=== PATIENT | male | born 1985 | race Caucasian/White ===

== ENCOUNTER 2017-05-23 17:30 | Emergency (ER) | payer MEDICAID ==
[~2017-05-23] VITALS: Ht 193 cm; Wt 77.1 kg
[~2017-05-23 17:30] MED LIST: ATARAX,VISTARIL50 MG PO; CARBIDOPA/LEVOD1 TA1 PO; DELTASONE20 MG PO; PREDNISONE20 M1 PO; PROAIR HFA0.09 MG/AC INH; PROVENTIL0.09 MG/A1 INH; QUETIAPINE FUMA25 MG PO; VIBRAMYCIN100 MG PO; ZITHROMAX250 MG PO
== END 2017-05-23 18:38 | disposition home or self-care (01) ==
LOC: ED 17:30
DX: T40.1X1A Poisoning by heroin, accidental (unintentional), initial encounter (principal); F17.200 Nicotine dependence, unspecified, uncomplicated; F14.10 Cocaine abuse, uncomplicated; F11.10 Opioid abuse, uncomplicated; Y92.9 Unspecified place or not applicable

== ENCOUNTER 2019-01-16 19:40 | Emergency (ER) | payer SELFPAY ==
[~2019-01-16] VITALS: Ht 193 cm; Wt 72.6 kg
[~2019-01-16 19:40] MED LIST changes: +ANTIBIOTIC28.4 GM T; +AUGMENTIN 875-875 MG PO; +BACITRACIN28.4 GM T; +CEPHALEXIN500 M1 PO; +SEPTDS PO
[2019-01-16] MEDS ORDERED: SEPTDS PO (20:26)
[2019-01-16] MEDS ORDERED: CEPHALEXIN500 M1 PO (20:26)
[2019-01-16] MEDS ORDERED: HYDROXYZINE HCL25 MG PO (20:26)
[2019-01-16] MEDS ORDERED: LOTRIMIN AF12 GM T (20:26)
== END 2019-01-16 20:36 | disposition home or self-care (01) ==
LOC: ED 19:40
DX: B35.3 Tinea pedis (principal); L30.9 Dermatitis, unspecified; F17.200 Nicotine dependence, unspecified, uncomplicated

== ENCOUNTER 2019-02-12 18:39 | Emergency (ER) | payer OTHER ==
[~2019-02-12] VITALS: Ht 193 cm; Wt 72.6 kg
[~2019-02-12 18:39] MED LIST changes: +HYDROXYZINE HCL25 MG PO; +LOTRIMIN AF12 GM T
[2019-02-12] MEDS ORDERED: ANTIBIOTIC28.4 GM T (19:18)
[2019-02-12] MEDS ORDERED: SEPTDS PO (19:18)
== END 2019-02-12 19:40 | disposition home or self-care (01) ==
LOC: ED 18:39
DX: L02.02 Furuncle of face (principal); F17.200 Nicotine dependence, unspecified, uncomplicated; F14.10 Cocaine abuse, uncomplicated; F11.10 Opioid abuse, uncomplicated; Z79.899 Other long term (current) drug therapy

== ENCOUNTER 2019-02-19 14:49 | Inpatient (IN) | payer OTHER ==
[~2019-02-19] VITALS: Ht 193 cm; Wt 71.5 kg
--- NOTE | ~2019-02-19 | EKG ---
[place], [place] ELECTROCARDIOGRAM REPORT NAME: SASHA GARDNER UNIT #: [id number] ROOM: 421 DOCTOR: STEFANY DRAFT REPORT BIRTHDATE: [birth year] [facility] Test Date: 2019-02-19 Test Time: 19:32:33 Pat Name: SASHA GARDNER Department: Room: 421 1 Gender: M Risk Tech: TORIN : 1985 Requested By: JEANNETTE ESCOTO Order Number: [id number] Reading MD: Percy Peoples MD Measurements Intervals Dailey Rate: 52 P: 69 AL: 168 QRS: 85 QRSD: 89 T: 57 QT: 474 QTc: 441 Interpretive Statements Sinus rhythm Probable left ventricular hypertrophy Electronically Signed On 02-26-2019 4:01:52 PDT by Percy Peoples MD CM:EKGRPT:ELECTROCARDIOGRAM REPORT 0401 JEANNETTE ESCOTO EPIPHANY DRAFT REPORT JEANNETTE ESCOTO
--- NOTE | 2019-02-19 15:49 | NUR ---
PATIENT MEETS [facility]. CINA=16. PATIENT WANTS TO FOLLOW UP WITH AA/NA MEETINGS AND OTHER SELF-HELP GROUPS FOR HIS AFTERCARE PLAN. ALEXANDER CHOE BA, ALLERGY NURSE
[2019-02-19 16:00] VITALS: BP 120/80
--- NOTE | 2019-02-19 16:00 | NUR ---
33 year old male admitted to room # opiate for stabilization. 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 Compliant with admission procedure. Patient denies any anxiety, but is unable to sit still looks about room, unable to focus eyes on nurse during interview. See assessment forms for additional information about patient status.
--- NOTE | 2019-02-19 16:43 | NUR ---
NOTIFIED DR. YOUNG PATIENT IS HERE.
[2019-02-19 17:29] LABS: BASO % 0.5 % (0.0-1.0); EOS # 0.1 10*3/uL (0.0-0.4); EOS % 1.5 % (1.0-4.0); HEMATOCRIT 36.4 % (42.0-52.0); HEMOGLOBIN 12.2 g/dl (14.0-18.0); LYMPH # 2.5 10*3/uL (1.3-4.4); LYMPH % 33.9 % (27.0-41.0); MEAN CELL VOLUME 96.3 fl (80.0-94.0); MEAN CORPUSCULAR HGB 32.3 pg (27.0-31.0); MEAN CORPUSCULAR HGB CONC 33.5 g/dl (33.0-37.0); MEAN PLATELET VOLUME 8.8 fl (9.6-12.3); MONO # 0.7 10*3/uL (0.1-1.0); NEUT # 4.1 10*3/uL (2.3-7.9); NEUT % 54.8 % (47.0-73.0); PLATELET COUNT AUTOMATED 290 10*3/uL (130-400); RED BLOOD COUNT 3.78 10*6/uL (4.50-5.90); RED CELL DISTRI WIDTH 12.3 % (0-14.5); WHITE BLOOD COUNT 7.4 10*3/uL (4.8-10.8)
[2019-02-19 17:40] LABS: INTERNATIONAL NORM RATIO 0.9 (2.0-3.5)
[2019-02-19 17:47] LABS: URINE AMPHETAMINES > 1000 (1000ng/ml); URINE BARBITURATES < 200 (200ng/ml); URINE BENZODIAZEPINES < 200 (200ng/ml); URINE CANNABINOIDS (THC) < 50 (50ng/ml); URINE COCAINE > 300 (300ng/ml); URINE METHADONE < 300 (300ng/ml); URINE OPIATES > 300 (300ng/ml)
[2019-02-19 17:50] LABS: ALBUMIN 3.3 gm/dl (3.1-4.5); ALKALINE PHOSPHATASE 81 U/L (45-117); BUN 19 mg/dl (7-24); CHLORIDE 101 mmol/L (98-107); POTASSIUM 4.3 mmol/L (3.5-5.1); SGOT/AST 47 IU/L (3-35); SGPT/ALT 77 U/L (12-78); SODIUM 137 mmol/L (136-145); TOTAL PROTEIN 7.5 gm/dL (6.4-8.2)
[2019-02-19 17:51] LABS: URINE PHENCYCLIDINE < 25 (25ng/ml)
[2019-02-19 17:55] LABS: ETHYL ALCOHOL < 3.0 mg/dl (<3)
--- NOTE | 2019-02-19 18:36 | NUR ---
MEDICATED WITH MOTRIN BENTYL ROBAXIN AND VISTARIL PER ORDERS AND REQUEST.
--- NOTE | 2019-02-19 19:44 | NUR ---
PATIENT RESTING IN BED WITH NO NEEDS MADE. REMINDED TO NOT LEAVE THE FLOOR. VERBALIZED UNDERSTANDING. BED IN LOWEST POSITION, CALL LIGHT IN REACH
[2019-02-19 20:00] VITALS: BP 114/63
[2019-02-19 20:40] LABS: BILIRUBIN NEGATIVE (NEGATIVE); BLOOD NEGATIVE (NEGATIVE); CLARITY CLEAR (CLEAR); COLOR YELLOW (YELLOW); GLUCOSE NEGATIVE (NEGATIVE); KETONE NEGATIVE (NEGATIVE); LEUKO ESTERASE NEGATIVE (NEGATIVE); NITRITE NEGATIVE (NEGATIVE); SPECIFIC GRAVITY 1.025 (1.005-1.030); UROBILINOGEN 0.2 E.U./dl (0.2-1.0)
[2019-02-19 20:46] LABS: BACTERIA 1+; CALCIUM OXALATE CRYSTALS 1+; EPITHELIAL CELLS 0-2; WBC 0-2 wbc/hpf (0-5)
[2019-02-20] VITALS: BP 107/62
--- NOTE | 2019-02-20 03:09 | NUR ---
24 HR chart check completed.
[2019-02-20 08:00] VITALS: BP 110/67
[2019-02-20 16:00] VITALS: BP 106/86
--- NOTE | 2019-02-20 17:33 | NUR ---
[facility] STAFF FOLLOWED UP WITH PATIENT. PATIENT IS STIILL WANTING TO FOLLOW UP WITH AA/NA MEETINGS AND SELF-HELP GROUPS. [facility] STAFF WILL PROVIDE A LIST IN HIS LOCAL AREA. ALEXANDER CHOE B.A. ASSISTANT COMMUNITY DIRECTOR
--- NOTE | 2019-02-20 20:00 | NUR ---
Patient resting quietly with no c/o discomfort. Respirations easy and regular. Vital signs stable. No overt distress. ERIKA JONES
[2019-02-21] VITALS: BP 129/72
--- NOTE | 2019-02-21 00:48 | NUR ---
RESTING IN BED WITH EYES CLOSED. APPEARS TO BE SLEEPING. NO DISTRESS NOTED.
--- NOTE | 2019-02-21 02:08 | NUR ---
0200 ROUTINE SUBUTEX GIVEN ORDERED. PT REMAINS WITHOUT C/O'S.
--- NOTE | 2019-02-21 06:23 | NUR ---
APPEARS TO HAVE SLEPT WELL THIS SHIFT. NO DISTRESS NOTED.
[2019-02-21 08:00] VITALS: BP 114/76
--- NOTE | 2019-02-21 08:42 | NUR ---
PT COMPLAIN OF HEADACHE, MOTRIN GIVEN. WILL MONITOR FOR EFFECTIVENESS
--- NOTE | 2019-02-21 15:26 | NUR ---
[place] STAFF WILL PROVIDE WITH AA/NA AND SELF-HELP MEETINGS IN HIS LOCAL AREA. PATIENT AGREES AND UNDERSTANDS HIS AFTERCARE PLAN. ALEXANDER CHOE BA PRINTED CIRCUIT LAYOUT TAPER
[2019-02-21 16:00] VITALS: BP 134/66
--- NOTE | 2019-02-21 20:05 | NUR ---
PT. STATES THAT HE WANTS TO LEAVE. HE STATES THAT HE WANTS TO LEAVE SO THAT HE CAN GO TO WORK IN THE MORNING. EXPLAINED TO PATIENT ABOUT REMAINING OVERNIGHT AND THAT HE WOULD BE DISCHARGED IN THE MORNING AND THAT HE WOULD BE LEAVING AGAINST MEDICAL ADVICE. PT. INSISTS ON LEAVING. AMA PAPERS SIGNED BY PATIENT & SIGNED & WITNESSED BY ANOTHER R.N.
--- NOTE | 2019-02-21 20:05 | NUR ---
DR. GERMAIN NOTIFIED OF PT. WANTING TO LEAVE AMA.
--- NOTE | 2019-02-21 20:15 | NUR ---
PT. LEFT AMA. STABLE; ALL BELONGINGS TAKEN WITH HIM.
== END 2019-02-21 20:15 | disposition left against medical advice (07) | DRG 894 ==
LOC: 4E 14:49
PROVIDERS: Internal Medicine; ADMIT Emergency Medicine
DX: F11.23 Opioid dependence with withdrawal (principal); L02.92 Furuncle, unspecified; F14.10 Cocaine abuse, uncomplicated; F17.210 Nicotine dependence, cigarettes, uncomplicated; R74.0 Nonspecific elevation of levels of transaminase and lactic acid dehydrogenase [LDH]; D53.1 Other megaloblastic anemias, not elsewhere classified; J45.909 Unspecified asthma, uncomplicated; R00.1 Bradycardia, unspecified; Z79.899 Other long term (current) drug therapy; Z81.8 Family history of other mental and behavioral disorders

== ENCOUNTER 2019-05-20 16:12 | Emergency (ER) | payer OTHER ==
[~2019-05-20] VITALS: Ht 193 cm; Wt 68.0 kg
== END 2019-05-20 16:50 | disposition left against medical advice (07) ==
LOC: ED 16:12
DX: T50.901A Poisoning by unspecified drugs, medicaments and biological substances, accidental (unintentional), initial encounter (principal); R40.20 Unspecified coma; R45.1 Restlessness and agitation; F17.200 Nicotine dependence, unspecified, uncomplicated; Y92.481 Parking lot as the place of occurrence of the external cause

== ENCOUNTER 2019-06-09 14:22 | Inpatient (IN) | payer OTHER ==
[~2019-06-09] VITALS: Ht 193 cm; Wt 74.4 kg
[2019-06-09 14:24] VITALS: BP 113/68
[2019-06-09 14:44] LABS: BILIRUBIN 1+ (NEGATIVE); BLOOD NEGATIVE (NEGATIVE); CLARITY CLEAR (CLEAR); COLOR YELLOW (YELLOW); GLUCOSE NEGATIVE (NEGATIVE); KETONE NEGATIVE (NEGATIVE); LEUKO ESTERASE NEGATIVE (NEGATIVE); NITRITE NEGATIVE (NEGATIVE); SPECIFIC GRAVITY <= 1.005 (1.005-1.030); UROBILINOGEN 0.2 E.U./dl (0.2-1.0)
[2019-06-09 14:54] LABS: EPITHELIAL CELLS 0-2
[2019-06-09 15:27] VITALS: BP 105/56
[2019-06-09 16:00] VITALS: BP 110/67
[2019-06-09 16:23] LABS: HEMATOCRIT 37.8 % (42.0-52.0); HEMOGLOBIN 12.9 g/dl (14.0-18.0); MEAN CORPUSCULAR HGB 30.7 pg (27.0-31.0); MEAN CORPUSCULAR HGB CONC 34.1 g/dl (33.0-37.0); PLATELET COUNT AUTOMATED 113 10*3/uL (130-400); RED CELL DISTRI WIDTH 11.9 % (0-14.5); WHITE BLOOD COUNT 3.9 10*3/uL (4.8-10.8)
[2019-06-09 16:39] LABS: BUN 15 mg/dl (7-24); CHLORIDE 102 mmol/L (98-107); CREATININE 0.81 mg/dL (0.70-1.30); POTASSIUM 3.8 mmol/L (3.5-5.1); SODIUM 135 mmol/L (136-145)
[2019-06-09 16:47] LABS: ATYPICAL LYMPHS 3 % (0-0); BASOPHILS 1 % (0-1); PLATELET SUFFICIENCY LOW (NORMAL); TOTAL CELLS COUNTED 100 #CELLS
[2019-06-09 16:54] LABS: ALKALINE PHOSPHATASE 249 U/L (45-117); TOTAL PROTEIN 6.7 gm/dL (6.4-8.2)
[2019-06-09 16:56] LABS: SGOT/AST 3197 IU/L (3-35); SGPT/ALT 3281 U/L (12-78)
[2019-06-09 18:00] VITALS: BP 110/67
[2019-06-09 18:03] VITALS: BP 114/71
[2019-06-09 20:00] VITALS: BP 104/60
[2019-06-10] VITALS: BP 107/59
[2019-06-10 04:00] VITALS: BP 102/56
[2019-06-10 06:27] LABS: HEMATOCRIT 37.9 % (42.0-52.0); HEMOGLOBIN 12.9 g/dl (14.0-18.0); MEAN CELL VOLUME 89.4 fl (80.0-94.0); MEAN CORPUSCULAR HGB 30.4 pg (27.0-31.0); PLATELET COUNT AUTOMATED 102 10*3/uL (130-400); RED BLOOD COUNT 4.24 10*6/uL (4.50-5.90); RED CELL DISTRI WIDTH 12.1 % (0-14.5); WHITE BLOOD COUNT 3.5 10*3/uL (4.8-10.8)
[2019-06-10 06:34] LABS: ALBUMIN 2.9 gm/dl (3.1-4.5); BUN 11 mg/dl (7-24); CHLORIDE 108 mmol/L (98-107); CREATININE 0.77 mg/dL (0.70-1.30); PHOSPHOROUS 3.1 mg/dL (2.5-4.9); POTASSIUM 4.1 mmol/L (3.5-5.1); SODIUM 140 mmol/L (136-145); TOTAL PROTEIN 6.4 gm/dL (6.4-8.2)
[2019-06-10 06:49] LABS: ALKALINE PHOSPHATASE 240 U/L (45-117); FREE T4 0.96 ng/dl (0.76-1.46)
[2019-06-10 06:52] LABS: SGOT/AST 2482 IU/L (3-35); SGPT/ALT 3302 U/L (12-78)
[2019-06-10 07:06] LABS: ACT PARTIAL THROMBO TIME 29.9 SECONDS (20.0-32.1); INTERNATIONAL NORM RATIO 1.2 (2.0-3.5)
[2019-06-10 07:22] LABS: ATYPICAL LYMPHS 22 % (0-0); TOTAL CELLS COUNTED 100 #CELLS
[2019-06-10 07:23] LABS: PLATELET SUFFICIENCY LOW (NORMAL)
[2019-06-10 08:00] VITALS: BP 100/58
[2019-06-10 12:00] VITALS: BP 119/65
[2019-06-10 16:00] VITALS: BP 121/65
[2019-06-11 07:08] LABS: HEPATITIS B SURFACE AG Negative (Negative)
[2019-06-11 09:05] LABS: HEPATITIS B SURFACE AG Negative (Negative)
[2019-06-11 11:03] LABS: HEPATITIS C VIRUS ANTIBODY >11.0 s/co (0.0-0.9)
[2019-06-11 11:07] LABS: HEPATITIS C VIRUS ANTIBODY >11.0 s/co (0.0-0.9)
== END 2019-06-10 18:22 | disposition left against medical advice (07) | DRG 660 ==
LOC: ED 14:22 → 5E 17:24 → EDHOLD 17:24 → 5E 17:57
PROVIDERS: Family Medicine; Internal Medicine Gastroenterology; Physician Assistant; ADMIT Internal Medicine
DX: D61.818 Other pancytopenia (principal); E87.8 Other disorders of electrolyte and fluid balance, not elsewhere classified; E44.0 Moderate protein-calorie malnutrition; R82.2 Biliuria; E87.1 Hypo-osmolality and hyponatremia; K76.0 Fatty (change of) liver, not elsewhere classified; B18.2 Chronic viral hepatitis C; R10.9 Unspecified abdominal pain; R74.0 Nonspecific elevation of levels of transaminase and lactic acid dehydrogenase [LDH]; F11.10 Opioid abuse, uncomplicated; Z53.29 Procedure and treatment not carried out because of patient's decision for other reasons; J45.909 Unspecified asthma, uncomplicated; E80.6 Other disorders of bilirubin metabolism; F17.210 Nicotine dependence, cigarettes, uncomplicated; Z81.8 Family history of other mental and behavioral disorders; Z68.1 Body mass index [BMI] 19.9 or less, adult

== ENCOUNTER 2020-01-17 22:43 | Emergency (ER) | payer OTHER ==
[~2020-01-17] VITALS: Ht 193 cm; Wt 72.6 kg
[2020-01-17] MEDS ORDERED: CEPHALEXIN500 M1 PO (22:54)
[2020-01-17] MEDS ORDERED: SEPTDS PO (22:54)
== END 2020-01-17 23:14 | disposition home or self-care (01) ==
LOC: ED 22:43
DX: L02.412 Cutaneous abscess of left axilla (principal); J45.909 Unspecified asthma, uncomplicated; F17.200 Nicotine dependence, unspecified, uncomplicated

== ENCOUNTER 2020-06-16 13:56 | Emergency (ER) | payer OTHER ==
[~2020-06-16] VITALS: Wt 77.1 kg
== END 2020-06-16 14:37 | disposition left against medical advice (07) ==
LOC: ED 13:56
DX: T40.1X1A Poisoning by heroin, accidental (unintentional), initial encounter (principal); J45.909 Unspecified asthma, uncomplicated; F17.200 Nicotine dependence, unspecified, uncomplicated; Z79.2 Long term (current) use of antibiotics; Z53.29 Procedure and treatment not carried out because of patient's decision for other reasons; Y92.89 Other specified places as the place of occurrence of the external cause

== ENCOUNTER 2020-06-16 23:57 | Emergency (ER) | payer OTHER ==
[~2020-06-16] VITALS: Ht 193 cm; Wt 77.1 kg
== END 2020-06-17 01:24 | disposition home or self-care (01) ==
LOC: ED 23:57
DX: S81.812A Laceration without foreign body, left lower leg, initial encounter (principal); Z79.899 Other long term (current) drug therapy; X58.XXXA Exposure to other specified factors, initial encounter; Y93.89 Activity, other specified; Y92.89 Other specified places as the place of occurrence of the external cause; Y99.8 Other external cause status

== ENCOUNTER 2020-07-03 18:50 | Emergency (ER) | payer OTHER ==
[~2020-07-03] VITALS: Wt 74.8 kg
[2020-07-03] MEDS ORDERED: CEFADROXIL500 M1 PO (20:09)
[2020-07-03] MEDS ORDERED: Motrin,Rufen800 MG PO (20:09)
[2020-07-03] MEDS ORDERED: SEPTDS PO (20:09)
== END 2020-07-03 20:10 | disposition left against medical advice (07) ==
LOC: ED 18:50
DX: T14.8XXA Other injury of unspecified body region, initial encounter (principal); X58.XXXA Exposure to other specified factors, initial encounter; Y93.89 Activity, other specified; Y92.89 Other specified places as the place of occurrence of the external cause; Y99.8 Other external cause status

== ENCOUNTER 2020-08-15 07:53 | Emergency (ER) | payer OTHER ==
[~2020-08-15] VITALS: Ht 180.3 cm; Wt 81.6 kg
[~2020-08-15 07:53] MED LIST changes: +CEFADROXIL500 M1 PO; +Motrin,Rufen800 MG PO
[2020-08-15 08:12] LABS: BASO % 0.3 % (0.0-1.0); EOS # 0.2 10*3/uL (0.0-0.4); EOS % 2.7 % (1.0-4.0); HEMATOCRIT 37.2 % (42.0-52.0); LYMPH # 2.2 10*3/uL (1.3-4.4); MEAN CELL VOLUME 90.7 fl (80.0-94.0); MEAN CORPUSCULAR HGB 30.2 pg (27.0-31.0); MEAN CORPUSCULAR HGB CONC 33.3 g/dl (33.0-37.0); MEAN PLATELET VOLUME 8.8 fl (9.6-12.3); MONO # 0.7 10*3/uL (0.1-1.0); NEUT # 2.8 10*3/uL (2.3-7.9); NEUT % 47.8 % (47.0-73.0); PLATELET COUNT AUTOMATED 181 10*3/uL (130-400); RED CELL DISTRI WIDTH 12.3 % (0-14.5); WHITE BLOOD COUNT 5.9 10*3/uL (4.8-10.8)
[2020-08-15 08:29] LABS: ALBUMIN 3.5 gm/dl (3.1-4.5); ALKALINE PHOSPHATASE 78 U/L (45-117); BUN 20 mg/dl (7-24); CHLORIDE 102 mmol/L (98-107); CREATININE 0.82 mg/dL (0.70-1.30); POTASSIUM 3.9 mmol/L (3.5-5.1); SGOT/AST 52 IU/L (3-35); SGPT/ALT 69 U/L (12-78); SODIUM 140 mmol/L (136-145); TOTAL PROTEIN 7.4 gm/dL (6.4-8.2)
[2020-08-15 08:30] LABS: ETHYL ALCOHOL < 3.0 mg/dl (<3)
[2020-08-15 11:35] LABS: BILIRUBIN Negative (Negative); BLOOD Negative (Negative); CLARITY Clear (Clear); COLOR Yellow (Yellow); GLUCOSE Negative (Negative); KETONE Negative (Negative); LEUKO ESTERASE Negative (Negative); NITRITE Negative (Negative); PH 6.5 (4.5-8.0); SPECIFIC GRAVITY 1.015 (1.001-1.030); UROBILINOGEN 0.2 E.U./dl (0.0-1.0)
[2020-08-15 11:43] LABS: URINE AMPHETAMINES > 1000 (1000ng/ml); URINE BARBITURATES < 200 (200ng/ml); URINE BENZODIAZEPINES < 200 (200ng/ml); URINE CANNABINOIDS (THC) < 50 (50ng/ml); URINE COCAINE < 300 (300ng/ml); URINE METHADONE < 300 (300ng/ml); URINE OPIATES < 300 (300ng/ml)
[2020-08-15 11:51] LABS: URINE PHENCYCLIDINE < 25 (25ng/ml)
[2020-08-15 11:55] LABS: BACTERIA 2+; EPITHELIAL CELLS 0-2; RBC 0-2 rbc/hpf (0-2); WBC 0-2 wbc/hpf (0-5)
== END 2020-08-15 11:55 | disposition home or self-care (01) ==
LOC: ED 07:53
PROVIDERS: Emergency Medicine
DX: T40.2X1A Poisoning by other opioids, accidental (unintentional), initial encounter (principal); S96.902A Unspecified injury of unspecified muscle and tendon at ankle and foot level, left foot, initial encounter; R40.20 Unspecified coma; M21.372 Foot drop, left foot; F11.10 Opioid abuse, uncomplicated; J45.909 Unspecified asthma, uncomplicated; Z88.2 Allergy status to sulfonamides; Z79.899 Other long term (current) drug therapy; X58.XXXA Exposure to other specified factors, initial encounter; Y93.89 Activity, other specified; Y92.89 Other specified places as the place of occurrence of the external cause; Y99.8 Other external cause status

== ENCOUNTER 2020-09-15 14:39 | Inpatient (IN) | payer OTHER ==
[~2020-09-15] VITALS: Ht 193 cm; Wt 71.3 kg
[2020-09-15 14:55] VITALS: BP 125/77
[2020-09-15 15:37] LABS: BASO % 0.4 % (0.0-1.0); EOS % 0.4 % (1.0-4.0); LYMPH # 1.6 10*3/uL (1.3-4.4); MEAN CELL VOLUME 90.5 fl (80.0-94.0); MEAN CORPUSCULAR HGB 29.5 pg (27.0-31.0); MEAN CORPUSCULAR HGB CONC 32.6 g/dl (33.0-37.0); MEAN PLATELET VOLUME 8.8 fl (9.6-12.3); MONO # 0.6 10*3/uL (0.1-1.0); MONO % 9.7 % (3.0-9.0); NEUT # 3.5 10*3/uL (2.3-7.9); NEUT % 61.3 % (47.0-73.0); PLATELET COUNT AUTOMATED 216 10*3/uL (130-400); RED CELL DISTRI WIDTH 12.6 % (0-14.5); WHITE BLOOD COUNT 5.7 10*3/uL (4.8-10.8)
[2020-09-15 15:48] LABS: ACT PARTIAL THROMBO TIME 27.9 SECONDS (20.0-32.1)
[2020-09-15 15:52] LABS: ALBUMIN 3.6 gm/dl (3.1-4.5); ALKALINE PHOSPHATASE 81 U/L (45-117); BUN 21 mg/dl (7-24); CHLORIDE 104 mmol/L (98-107); CREATININE 0.84 mg/dL (0.70-1.30); SGOT/AST 44 IU/L (3-35); SGPT/ALT 54 U/L (12-78); SODIUM 137 mmol/L (136-145); TOTAL PROTEIN 7.6 gm/dL (6.4-8.2)
[2020-09-15 16:30] VITALS: BP 113/72
[2020-09-15 16:36] LABS: BILIRUBIN Negative (Negative); BLOOD Negative (Negative); CLARITY Clear (Clear); COLOR Dark Yellow (Yellow); GLUCOSE Negative (Negative); KETONE Trace (Negative); LEUKO ESTERASE Negative (Negative); NITRITE Negative (Negative); SPECIFIC GRAVITY 1.025 (1.001-1.030)
[2020-09-15 16:44] LABS: BACTERIA TRACE; RBC 0-2 rbc/hpf (0-2); URINE AMPHETAMINES > 1000 (1000ng/ml); URINE BARBITURATES < 200 (200ng/ml); URINE BENZODIAZEPINES < 200 (200ng/ml); URINE CANNABINOIDS (THC) < 50 (50ng/ml); URINE COCAINE < 300 (300ng/ml); URINE METHADONE < 300 (300ng/ml); URINE OPIATES < 300 (300ng/ml); WBC 0-2 wbc/hpf (0-5)
[2020-09-15 16:45] LABS: MUCOUS 1+
[2020-09-15 16:55] LABS: URINE PHENCYCLIDINE < 25 (25ng/ml)
[2020-09-15 20:00] VITALS: BP 100/55
[2020-09-16] VITALS: BP 105/60
[2020-09-16 08:00] VITALS: BP 112/72
[2020-09-16 12:00] VITALS: BP 109/62
[2020-09-16 16:00] VITALS: BP 109/59
[2020-09-16 20:02] VITALS: BP 127/67
[2020-09-17] VITALS: BP 103/58
[2020-09-17 08:00] VITALS: BP 110/59; BP 118/50
[2020-09-17 12:00] VITALS: BP 124/70
== END 2020-09-17 15:29 | disposition left against medical advice (07) | DRG 770 ==
LOC: ED 14:39 → EDHOLD 15:20 → 5E 15:20
PROVIDERS: Emergency Medicine; ADMIT Internal Medicine; ATTEND Internal Medicine
DX: F11.23 Opioid dependence with withdrawal (principal); F41.9 Anxiety disorder, unspecified; F32.9 Major depressive disorder, single episode, unspecified; J45.909 Unspecified asthma, uncomplicated; F15.10 Other stimulant abuse, uncomplicated; F17.210 Nicotine dependence, cigarettes, uncomplicated; E83.41 Hypermagnesemia; R76.8 Other specified abnormal immunological findings in serum; D64.9 Anemia, unspecified; Z81.8 Family history of other mental and behavioral disorders; Z71.6 Tobacco abuse counseling; Z79.899 Other long term (current) drug therapy; Z53.29 Procedure and treatment not carried out because of patient's decision for other reasons

== ENCOUNTER → 2020-09-21 | Outpatient (CLI) | payer OTHER | END | disposition home or self-care (01) | LOC: COVID19 15:17 | PROVIDERS: ATTEND Social Worker Clinical | DX: Z11.52 Encounter for screening for COVID-19 (principal) ==

== ENCOUNTER → 2020-12-18 | Outpatient (CLI) | payer OTHER ==
[2020-12-18 17:43] LABS: ALBUMIN 3.9 gm/dl (3.1-4.5); BUN 17 mg/dl (7-24); CHLORIDE 109 mmol/L (98-107); FREE T4 0.88 ng/dl (0.76-1.46); POTASSIUM 4.3 mmol/L (3.5-5.1); SGPT/ALT 41 U/L (12-78); SODIUM 140 mmol/L (136-145)
[2020-12-18 17:53] LABS: ALKALINE PHOSPHATASE 70 U/L (45-117); CREATININE 0.86 mg/dL (0.70-1.30); SGOT/AST 40 IU/L (3-35); THYROID STIM HORMONE (HS) 0.799 uIU/ml (0.358-4.75); TOTAL PROTEIN 7.2 gm/dL (6.4-8.2)
[2020-12-19 08:08] LABS: HEP B CORE AB, IGM Negative (Negative); HEPATITIS B SURFACE AB Reactive (.); HEPATITIS B SURFACE AG Negative (Negative)
[2020-12-19 19:06] LABS: HEPATITIS C QNT HCV Not Detected IU/mL (.)
[2020-12-21 10:54] LABS: HEPATITIS C VIRUS ANTIBODY >11.0 s/co (0.0-0.9)
== END | disposition home or self-care (01) ==
LOC: LAB 15:57
PROVIDERS: ATTEND Internal Medicine
DX: B18.2 Chronic viral hepatitis C (principal); F32.9 Major depressive disorder, single episode, unspecified; Z20.2 Contact with and (suspected) exposure to infections with a predominantly sexual mode of transmission

== ENCOUNTER → 2021-01-18 | Day surgery (SDC) | payer OTHER ==
[~2021-01-18] VITALS: Ht 193 cm; Wt 72.6 kg
[~2021-01-18] MED LIST changes: +BUSPAR5 MG PO; +SUBOXONE 8 MG-1 EACH SL; +WELLBUTRIN XL300 MG PO
[2021-01-18 09:47] VITALS: BP 125/70
[2021-01-18 12:36] VITALS: BP 88/42
[2021-01-18 12:51] VITALS: BP 88/44
[2021-01-18 13:06] VITALS: BP 94/48
[2021-01-18 13:21] VITALS: BP 103/56
== END | disposition home or self-care (01) ==
LOC: SDC 01-14 08:45
PROVIDERS: ATTEND Surgery
DX: L72.0 Epidermal cyst (principal); D21.0 Benign neoplasm of connective and other soft tissue of head, face and neck; J45.909 Unspecified asthma, uncomplicated; F41.9 Anxiety disorder, unspecified; F32.9 Major depressive disorder, single episode, unspecified; F17.210 Nicotine dependence, cigarettes, uncomplicated; Z79.899 Other long term (current) drug therapy; Z20.822 Contact with and (suspected) exposure to COVID-19

== ENCOUNTER → 2021-02-10 | Outpatient (CLI) | payer OTHER ==
[2021-02-10 13:35] LABS: ALBUMIN 3.5 gm/dl (3.1-4.5); ALKALINE PHOSPHATASE 69 U/L (45-117); BUN 17 mg/dl (7-24); CHLORIDE 107 mmol/L (98-107); CREATININE 0.83 mg/dL (0.70-1.30); FREE T4 0.92 ng/dl (0.76-1.46); SGOT/AST 31 IU/L (3-35); SGPT/ALT 37 U/L (12-78); SODIUM 140 mmol/L (136-145); TOTAL PROTEIN 7.2 gm/dL (6.4-8.2)
[2021-02-10 13:41] LABS: THYROID STIM HORMONE (HS) 0.941 uIU/ml (0.358-4.75)
== END | disposition home or self-care (01) ==
LOC: LAB 12:32
PROVIDERS: ATTEND Internal Medicine
DX: M79.642 Pain in left hand (principal)

== ENCOUNTER → 2021-05-27 | Outpatient (CLI) | payer OTHER ==
[2021-05-27 18:57] LABS: BASO % 0.2 % (0.0-1.0); EOS # 0.1 10*3/uL (0.0-0.4); EOS % 0.9 % (1.0-4.0); HEMATOCRIT 40.6 % (42.0-52.0); LYMPH # 2.5 10*3/uL (1.3-4.4); LYMPH % 38.5 % (27.0-41.0); MEAN CELL VOLUME 93.3 fl (80.0-94.0); MEAN CORPUSCULAR HGB CONC 33.3 g/dl (33.0-37.0); MEAN PLATELET VOLUME 9.9 fl (9.6-12.3); MONO # 0.6 10*3/uL (0.1-1.0); MONO % 9.2 % (3.0-9.0); NEUT # 3.3 10*3/uL (2.3-7.9); PLATELET COUNT AUTOMATED 192 10*3/uL (130-400); RED BLOOD COUNT 4.35 10*6/uL (4.50-5.90); RED CELL DISTRI WIDTH 12.1 % (0-14.5); WHITE BLOOD COUNT 6.5 10*3/uL (4.8-10.8)
[2021-05-27 19:13] LABS: ALBUMIN 3.6 gm/dl (3.1-4.5); ALKALINE PHOSPHATASE 63 U/L (45-117); BUN 19 mg/dl (7-24); CHLORIDE 108 mmol/L (98-107); CREATININE 1.09 mg/dL (0.70-1.30); POTASSIUM 3.8 mmol/L (3.5-5.1); SGOT/AST 24 IU/L (3-35); SGPT/ALT 32 U/L (12-78); SODIUM 142 mmol/L (136-145); TOTAL PROTEIN 7.3 gm/dL (6.4-8.2)
[2021-05-29 09:06] LABS: HEP B CORE AB, IGM Indeterminate (Negative); HEPATITIS B SURFACE AG Negative (Negative); HEPATITIS C VIRUS ANTIBODY >11.0 s/co (0.0-0.9)
== END | disposition home or self-care (01) ==
LOC: LAB 17:55
PROVIDERS: ATTEND Family Medicine
DX: Z79.899 Other long term (current) drug therapy (principal)

== ENCOUNTER → 2021-10-08 | Outpatient (CLI) | payer OTHER ==
[2021-10-08 10:17] LABS: BASO % 0.4 % (0.0-1.0); EOS # 0.1 10*3/uL (0.0-0.4); EOS % 2.3 % (1.0-4.0); HEMATOCRIT 42.8 % (42.0-52.0); LYMPH # 1.8 10*3/uL (1.3-4.4); LYMPH % 37.8 % (27.0-41.0); MEAN CORPUSCULAR HGB 31.3 pg (27.0-31.0); MEAN CORPUSCULAR HGB CONC 33.6 g/dl (33.0-37.0); MEAN PLATELET VOLUME 9.7 fl (9.6-12.3); MONO # 0.5 10*3/uL (0.1-1.0); MONO % 10.1 % (3.0-9.0); NEUT # 2.4 10*3/uL (2.3-7.9); PLATELET COUNT AUTOMATED 155 10*3/uL (130-400); RED CELL DISTRI WIDTH 12.3 % (0-14.5); WHITE BLOOD COUNT 4.9 10*3/uL (4.8-10.8)
[2021-10-08 10:37] LABS: ALKALINE PHOSPHATASE 69 U/L (45-117); BUN 15 mg/dl (7-24); CHLORIDE 109 mmol/L (98-107); CREATININE 0.88 mg/dL (0.70-1.30); POTASSIUM 4.8 mmol/L (3.5-5.1); SGOT/AST 32 IU/L (3-35); SGPT/ALT 32 U/L (12-78); SODIUM 141 mmol/L (136-145); TOTAL PROTEIN 7.8 gm/dL (6.4-8.2)
[2021-10-09 06:07] LABS: HEP B CORE AB, IGM Negative (Negative); HEPATITIS B SURFACE AG Negative (Negative); HEPATITIS C VIRUS ANTIBODY >11.0 s/co (0.0-0.9)
== END | disposition home or self-care (01) ==
LOC: US 09:00 → LAB 09:04
PROVIDERS: ATTEND Internal Medicine
DX: Z11.3 Encounter for screening for infections with a predominantly sexual mode of transmission (principal); K76.0 Fatty (change of) liver, not elsewhere classified

== ENCOUNTER → 2021-10-19 | Outpatient (CLI) | payer OTHER | END | disposition home or self-care (01) | LOC: LAB 14:58 | PROVIDERS: ATTEND Internal Medicine | DX: Z12.5 Encounter for screening for malignant neoplasm of prostate (principal); Z80.42 Family history of malignant neoplasm of prostate ==

== ENCOUNTER 2022-02-24 12:03 | Emergency (ER) | payer OTHER | END 2022-02-24 12:50 | disposition left against medical advice (07) | LOC: ED 12:03 | DX: Z04.1 Encounter for examination and observation following transport accident (principal); Z53.21 Procedure and treatment not carried out due to patient leaving prior to being seen by health care provider; V89.0XXA Person injured in unspecified motor-vehicle accident, nontraffic, initial encounter; Y93.55 Activity, bike riding; Y92.413 State road as the place of occurrence of the external cause; Y99.9 Unspecified external cause status ==

== ENCOUNTER 2022-02-25 13:34 | Emergency (ER) | payer OTHER | END 2022-02-25 18:40 | disposition home or self-care (01) | LOC: ED 13:34 | DX: S83.92XA Sprain of unspecified site of left knee, initial encounter (principal); Z79.899 Other long term (current) drug therapy; F17.200 Nicotine dependence, unspecified, uncomplicated; V86.99XA Unspecified occupant of other special all-terrain or other off-road motor vehicle injured in nontraffic accident, initial encounter; Y93.89 Activity, other specified; Y92.89 Other specified places as the place of occurrence of the external cause; Y99.8 Other external cause status ==

== ENCOUNTER 2023-02-11 08:11 | Emergency (ER) | payer MEDICAID ==
[~2023-02-11] VITALS: Ht 193 cm; Wt 72.6 kg
[2023-02-11] MEDS ORDERED: GABAPENTIN600 MG PO (08:39)
[2023-02-11] MEDS ORDERED: VIBRAMYCIN HYC100 MG PO (09:35)
== END 2023-02-11 19:17 | disposition home or self-care (01) ==
LOC: ED 08:11
DX: S41.111A Laceration without foreign body of right upper arm, initial encounter (principal); F17.200 Nicotine dependence, unspecified, uncomplicated; W26.8XXA Contact with other sharp object(s), not elsewhere classified, initial encounter; Y93.89 Activity, other specified; Y92.89 Other specified places as the place of occurrence of the external cause; Y99.8 Other external cause status

== ENCOUNTER 2023-06-26 10:49 | Emergency (ER) | payer MEDICAID ==
[~2023-06-26] VITALS: Ht 182.8 cm; Wt 54.4 kg
[~2023-06-26 10:49] MED LIST changes: +ARIPIPRAZOLE5 MG PO; +GABAPENTIN600 MG PO; +VIBRAMYCIN HYC100 MG PO
[2023-06-26 11:25] LABS: BASO % 0.4 % (0.0-1.0); EOS # 0.1 10*3/uL (0.0-0.4); EOS % 1.3 % (1.0-4.0); HEMATOCRIT 42.4 % (42.0-52.0); LYMPH # 2.8 10*3/uL (1.3-4.4); MEAN CELL VOLUME 88.1 fl (80.0-94.0); MEAN CORPUSCULAR HGB 29.5 pg (27.0-31.0); MEAN CORPUSCULAR HGB CONC 33.5 g/dl (33.0-37.0); MEAN PLATELET VOLUME 9.2 fl (9.6-12.3); MONO # 0.7 10*3/uL (0.1-1.0); MONO % 10.6 % (3.0-9.0); NEUT # 3.3 10*3/uL (2.3-7.9); NEUT % 47.6 % (47.0-73.0); PLATELET COUNT AUTOMATED 246 10*3/uL (130-400); RED BLOOD COUNT 4.81 10*6/uL (4.50-5.90); RED CELL DISTRI WIDTH 12.3 % (0-14.5)
[2023-06-26 11:48] LABS: ALKALINE PHOSPHATASE 95 U/L (46-116); BUN 20 mg/dl (9-23); CHLORIDE 106 mmol/L (98-107); POTASSIUM 3.9 mmol/L (3.4-5.1); SGPT/ALT 29 U/L (5-49); TOTAL PROTEIN 8.1 gm/dL (6.0-8.0)
== END 2023-06-26 13:39 | disposition home or self-care (01) ==
LOC: ED 10:49
PROVIDERS: Nurse Practitioner
DX: T40.411A Poisoning by fentanyl or fentanyl analogs, accidental (unintentional), initial encounter (principal); R11.10 Vomiting, unspecified; J45.909 Unspecified asthma, uncomplicated; F17.200 Nicotine dependence, unspecified, uncomplicated; Y92.009 Unspecified place in unspecified non-institutional (private) residence as the place of occurrence of the external cause

== ENCOUNTER 2023-06-28 20:48 | Emergency (ER) | payer MEDICAID ==
[~2023-06-28] VITALS: Ht 193 cm; Wt 70.3 kg
== END 2023-06-28 23:17 | disposition home or self-care (01) ==
LOC: ED 20:48
DX: T40.1X1A Poisoning by heroin, accidental (unintentional), initial encounter (principal); R11.0 Nausea; J45.909 Unspecified asthma, uncomplicated; F17.200 Nicotine dependence, unspecified, uncomplicated; F19.10 Other psychoactive substance abuse, uncomplicated; Y92.009 Unspecified place in unspecified non-institutional (private) residence as the place of occurrence of the external cause